=== PATIENT | female | born 1995 | race Caucasian/White ===

== ENCOUNTER 2016-08-28 21:52 | Emergency (ER) ==
[2016-08-29] MEDS ORDERED: NS 1,000 ML IV ONE (00:04)
[2016-08-29] MEDS ORDERED: ZOFRAN IV ONE (00:04)
[2016-08-29] MEDS ORDERED: DILAUDID IV ONE (00:04)
[2016-08-29 00:24] LABS: URINE SOURCE CLEAN CATCH
[2016-08-29 00:58] LABS: BASO% 0.4 % (0.0-0.8); EOS# 0.49 X1000 (0.0-0.7); HEMATOCRIT 34.2 % (37.0-47.0); HEMOGLOBIN 10.2 g/dL (12.0-16.0); IMM GRAN# 0.02 X1000 (0.0-0.04); IMM GRAN% 0.2 % (0.0-0.5); LYMPH# 4.45 X1000 (1.2-3.4); LYMPH% 36.1 % (20.5-51.1); MCH 20.2 PG (27-31); MCHC 29.8 g/dL (33-37); MCV 67.6 FL (81-99); MONO% 5.7 % (1.7-9.3); MPV 11.2 FL (7.4-10.4); NEUT% 53.6 % (42.2-75.2); PLT 309 X1000 (130-400); RBC 5.06 XMIL (4.2-5.4)
[2016-08-29 01:00] LABS: MANUAL DIFF NEEDED? NO
[2016-08-29 01:03] LABS: BILIRUBIN URINE NEGATIVE (NEGATIVE); BLOOD URINE NEGATIVE (NEGATIVE); CLARITY CLEAR (CLEAR); COLOR YELLOW; GLUCOSE URINE NEGATIVE (NEGATIVE); LEUKOCYTES URINE TRACE (NEGATIVE); NITRITE URINE NEGATIVE (NEGATIVE); PH URINE 6.5; PROTEIN URINE TRACE mg/dL (NEGATIVE); UROBILINOGEN URINE NORMAL
[2016-08-29 01:04] LABS: URINE CULTURE PL NEEDED? YES; URINE EPITHELIAL CELLS <10 /HPF (<10); URINE RBC <10 /HPF (<10); URINE WBC <10 /HPF (<10)
[2016-08-29 01:18] LABS: AGAP 13; ALBUMIN 4.6 g/dL (3.5-5.0); ALKALINE PHOSPHATASE 113 U/L (32-104); AMYLASE 40 U/L (20-200); BUN 12 mg/dL (8-22); CALCIUM 9.8 mg/dL (8.8-10.2); CHLORIDE 103 mmol/L (98-107); COSMO 277; GOT 21 U/L (10-30); GPT 23 U/L (10-36); LIPASE 34 U/L (13-60); POTASSIUM 3.8 mmol/L (3.5-5.1); SODIUM 139 mmol/L (136-145); TCO2 23 mmol/L (25-35); TOTAL PROTEIN 7.8 g/dL (6.3-8.3)
--- NOTE | 2016-08-29 01:52 | PROVIDER DOCUMENTATION ---
HPI-Abdominal Pain/GI Problem - General Chief Complaint: Abdominal Pain Stated Complaint: SORE THROAT Time Seen by Provider: 08/28/16 22:57 Source: patient Allergies/Adverse Reactions: Patient Allergies Allergy/AdvReac Type Severity Reaction Status Date / Time No Known Allergies Allergy Verified 08/28/16 23:33 Home Medications: Home Medication List Medication Instructions Recorded Confirmed Last Taken Type No Home Medications 08/28/16 08/28/16 Unknown History - History of Present Illness-ABD Nature of Presenting Problems: 21 year old obese WF presents with m/c. pt reports she awoke this morning with sore throat, RUQ, RLQ abd pain with fever to 101 at home. denies associated NVD. pt reports she has been eating and drinking well. pain is dull, constant, exacerbated with palpation, movement, alleviated by nothing. Abdominal Pain Onset Location: reports: RUQ, RLQ Pain Radiation: reports: no radiation Quality of Pain: reports: aching, dull Severity in ED: reports: mild Onset/Duration: reports: this morning Timing: reports: still present, constant, getting worse Activities at Onset: reports: none Modifying Factors: improves with: nothing Associated Symptoms: reports: fever/chills Last BM: this morning Dark Stools Present?: reports: none noticed. denies: maroon, black, tarry Rectal Bleeding: reports: none. denies: bleeding without stool, bright red blood on paper, blood mixed with stool, blood streaks on stool, bloody diarrhea # of Diarrhea Episodes: 0 Rectal Pain: reports: none # of Vomiting Episodes: 0 Emesis Description: reports: none Review of Systems - Adult - REVIEW OF SYSTEMS - ADULT Constitutional: reports: see HPI, chills, fever. denies: fatique Eyes: reports: no symptoms reported. denies: discharge, blurred vision, double vision Ears, Nose, Mouth & Throat: reports: see HPI, throat pain, throat swelling. denies: ear discharge, ear pain, nose pain, loose teeth Cardiovascular: reports: no symptoms reported. denies: chest pain, palpitations , syncope Respiratory: reports: no symptoms reported. denies: chronic cough, cough, shortness of breath, wheezing Gastrointestinal: reports: see HPI, abdominal pain. denies: hematemesis, constipation, diarrhea, difficulty swallowing, frequent heartburn, nausea, poor appetite, rectal bleeding, vomiting Genitourinary: reports: no symptoms reported. denies: dysuria, hematuria, urgency Musculoskeletal: reports: no symptoms reported. denies: bone pain, joint pain, joint swelling, neck pain Integumentary: reports: no symptoms reported. denies: hives, itching, skin thickening Neurological: reports: no symptoms reported. denies: ataxia, numbness, paresthesia, tremors Psychiatric: reports: no symptoms reported Endocrine: reports: no symptoms reported Hematologic/Lymphatic: reports: no symptoms reported Allergic/Immunologic: reports: no symptoms reported All Other Systems: Reviewed and Negative Past History - Adult - PAST MEDICAL HISTORY-ADULT Review of Records: reports: Old Records Reviewed, Nursing Assessment Review, Medications Reviewed, Social history reviewed & non-contributory. Major Childhood Illnesses: reports: denies history Cardiovascular: reports: HTN Respiratory: reports: asthma Gastrointestinal: reports: denies history Obstetrical/Gynecological: reports: denies history Genitourinary: reports: other (FREQUENT MENSTRUATION PAIN AND PROBLEMS) Musculoskeletal: reports: denies history Neurological: reports: denies history Psychiatric: reports: bipolar Endocrine/Immune: reports: denies history Other Conditions: reports: other (ATTENTION SEEKING BEHAVIOR) - PRIOR SURGERIES/PROCEDURES Surgical/Procedure History: reports: - PRIOR HOSPITALIZATIONS Prior Hospitalizations: reports: for other non-related (recently for iron deficiency anemia) - IMMUNIZATION STATUS Childhood Immunizations: See Nurse Assessment Flu Vaccine: See Nurse Assessment - FAMILY HISTORY Family History: reviewed, not pertinent - SOCIAL HISTORY Smoking: cigarettes Provider spent 3-5 mins advising pt. on dangers of tobacco.: Discussed manners to quit use, and f/u contacts for add'l counseling. Substance Use: none/never Alcohol Use Frequency: never Physical Exam-General - PHYSICAL EXAM-ADULT Initial Vital Signs Reviewed: Yes - CONSTITUTIONAL General Appearance: appears well, alert, no apparent distress. negative: mild distress, moderate distress, severe distress - EYES Eyes: pink conjunctivae. negative: conjuctival exudate, pale conjunctivae, photophobia, scleral icterus, subconjunctival hemorrhage - HEAD, EARS, NOSE, MOUTH & THROAT HENMT: normocephalic/atraumatic, moist mucous membranes, normal ENT inspection - NECK Neck: non-tender, full range of motion, supple, normal inspection - RESPIRATORY Respiratory: chest non-tender, lungs clear, normal breath sounds, no pleuratic chest pain, no respiratory distress, no accessory muscle use - CARDIOVASCULAR Cardiovascular: normal peripheral pulses, regular rate, rhythm - CHEST (BREASTS) Chest/Breast: deferred - GASTROINTESTINAL (ABDOMEN) Abdominal Exam: normal bowel sounds, soft, no organomegaly, no pulsatile mass, tenderness (RUQ, RLQ). negative: non tender, abnormal bowel sounds, distended, guarding, rigid, rebound, hernia, mass, hepatomegaly, spleenomegaly, McBurney's point tenderness, You's sign, obturator sign, prominent aortic pulsations, psoas, Rovsing's sign - GENITOURINARY Female Genitalia/Pelvic Exam: deferred Rectal Exam: deferred Hemoccult Exam: deferred - LYMPHATIC Lymphatic: no adenopathy - MUSCULOSKELETAL Back Exam: normal inspection, no CVA tenderness, no vertebral tenderness. negative: CVA tenderness, decreased range of motion, swelling, vertebral tenderness Extremity: normal range of motion, non-tender, normal gait, normal inspection, no pedal edema, no calf tenderness, normal capillary refill. negative: deformity, erythema, slow capillary refill, swelling Peripheral Pulses: radial (R): 3+, radial (L): 3+, dorsalis-pedis (R): 3+, dorsalis-pedis (L): 3+ - SKIN Integumentary: normal color, normal turgor, warm/dry - NEUROLOGIC Neurologic: grossly normal, no motor/sensory deficits - PSYCHIATRIC Psych/Mental Status: normal mood/affect, normal thought content, normal thought process, oriented x 3 Progress - PLAN OF CARE/RESULTS Progress/Plan/Lab Results: Laboratory Tests 08/28/16 08/29/16 08/29/16 22:00 00:15 00:15 WBC 12.31 H RBC 5.06 Hgb 10.2 L Hct 34.2 L MCV 67.6 L MCH 20.2 L MCHC 29.8 L RDW Std Deviation 17.4 H Plt Count 309 MPV 11.2 H Immature Gran % (Auto) 0.2 Neut % (Auto) 53.6 Lymph % (Auto) 36.1 [place] % (Auto) 5.7 Eos % (Auto) 4.0 Baso % (Auto) 0.4 Immature Gran # (Auto) 0.02 Neut # (Auto) 6.60 H Lymph # (Auto) 4.45 H Waller # (Auto) 0.70 H Eos # (Auto) 0.49 Baso # (Auto) 0.05 Sodium 139 Potassium 3.8 Chloride 103 Carbon Dioxide 23 L Anion Gap 13 BUN 12 Creatinine 0.7 Estimated GFR/1.73 m2 > 60 BUN/Creatinine Ratio 17 Glucose 96 Calculated Osmolality 277 Calcium 9.8 Total Bilirubin 0.20 AST 21 ALT 23 Alkaline Phosphatase 113 H Total Protein 7.8 Albumin 4.6 Globulin 3.0 Albumin/Globulin Ratio 1.0 Amylase 40 Lipase 34 Urine Source Urine Color Urine Clarity Urine pH Ur Specific [place] Urine Protein Urine Ketones Urine Blood Urine Nitrite Urine Bilirubin Urine Urobilinogen Urine Microscopic RBC Urine WBC Urine Microscopic WBC Ur Epithelial Cells Urine Bacteria Urine Glucose Urine Test Group A Strep Rapid NEGATIVE 08/29/16 08/29/16 00:17 00:17 WBC RBC Hgb Hct MCV MCH MCHC RDW Std Deviation Plt Count MPV Immature Gran % (Auto) Neut % (Auto) Lymph % (Auto) [place] % (Auto) Eos % (Auto) Baso % (Auto) Immature Gran # (Auto) Neut # (Auto) Lymph # (Auto) [place] # (Auto) Eos # (Auto) Baso # (Auto) Sodium Potassium Chloride Carbon Dioxide Anion Gap BUN Creatinine Estimated GFR/1.73 m2 BUN/Creatinine Ratio Glucose Calculated Osmolality Calcium Total Bilirubin AST ALT Alkaline Phosphatase Total Protein Albumin Globulin Albumin/Globulin Ratio Amylase Lipase Urine Source CLEAN CATCH Urine Color YELLOW Urine Clarity CLEAR Urine pH 6.5 Ur Specific [place] 1.010 Urine Protein TRACE A Urine Ketones NEGATIVE Urine Blood NEGATIVE Urine Nitrite NEGATIVE Urine Bilirubin NEGATIVE Urine Urobilinogen NORMAL Urine Microscopic RBC <10 Urine WBC TRACE A Urine Microscopic WBC <10 Ur Epithelial Cells <10 Urine Bacteria 1+ Urine Glucose NEGATIVE Urine Test NEGATIVE Group A Strep Rapid Orders Category Date Time Status Saline Loc DIRECTED Care 08/29/16 00:03 Active NPO Diet 08/29/16 00:[address] ABD/PELVIS W/ IV CONT ONLY [CT] Stat Exams 08/29/16 01:46 Ordered FLAT/UPRIGHT ABD/1 VIEW CHEST [RAD] Stat Exams 08/29/16 00:06 Taken AMYLASE [CHEM] Stat Lab 08/29/16 00:15 Completed CBC WITH ELECTRONIC DIFF [HEME] Stat Lab 08/29/16 00:15 Completed COMPREHENSIVE METABOLIC PANEL [CHEM] Stat Lab 08/29/16 00:[address] Stat Lab 08/28/16 22:00 Completed LIPASE [CHEM] Stat Lab 08/29/16 00:15 Completed TEST-URINE [PREG] Stat Lab 08/29/16 00:[address] W/POSS RFLX CULT [URINALYSIS] Stat Lab 08/29/16 00:17 Completed URINE CULTURE [RM] Routine Lab 08/29/16 01:04 Ordered 0.9% Sodium Chloride Inj [Ns] 1,000 ml Med 08/29/16 00:04 Discontinued IV 999 mls/hr Hydromorphone [Dilaudid] Med 08/29/16 00:04 Discontinued 0.5 mg IV NOW ONE Ondansetron [Zofran] Med 08/29/16 00:04 Discontinued 4 mg IV NOW ONE Vital Signs - 24 hr 08/28/16 21:56 Temperature 98.6 F Pulse Rate 86 Respiratory 18 Rate Blood Pressure 144/76 O2 Sat by Pulse 100 Oximetry Departure - Departure Time of Disposition Order: 02:42 DIAGNOSIS: Abdominal pain Qualifiers: Abdominal location: right lower quadrant Qualified Code(s): R10.31 - Right lower quadrant pain Disposition: [place] [address] Certified Medical Emergency: Emergent Condition: Stable Referrals: None,PCP [Primary Care Provider] - Attestation - Physician/ LISA Attestation Patient care was provided by Advanced Practice Provider:: Yes Advanced Practice Provider:: Graham Márquez Advanced Practice Provider documentation review:: The Mid-level provider documentation, treatment plan and medical decision making was reviewed by the physician who agrees with all treatment and medical decision making by the MLP.
[2016-08-29 01:59] VITALS: BP 121/80
--- NOTE | 2016-08-29 08:42 | Diag Imaging Result Document ---
PROCEDURE NAME: FLAT/UPRIGHT ABD/1 VIEW CHEST - 08/29/2016 FRONTAL CHEST X-RAY AND 2 VIEWS OF THE ABDOMEN: COMPARISON: 07/24/2016. FINDINGS: The chest is clear. There is a nonobstructive bowel gas pattern. No free air or abnormal calcifications. IMPRESSION: No acute disease.
== END 2016-08-29 02:42 | disposition left against medical advice (07) ==
LOC: P.ED 21:52
DX: R10.31 Right lower quadrant pain (principal); R10.11 Right upper quadrant pain; R50.9 Fever, unspecified; R07.0 Pain in throat; R22.1 Localized swelling, mass and lump, neck; I10 Essential (primary) hypertension; F17.210 Nicotine dependence, cigarettes, uncomplicated; Z71.6 Tobacco abuse counseling
CPT/HCPCS: 74022; 80053; 81001; 81025; 82150; 83690; 85025; 87081; 87088; 87430; J1170; J2405; J7030

== ENCOUNTER 2016-08-30 13:33 | Emergency (ER) ==
--- NOTE | 2016-08-30 14:19 | PROVIDER DOCUMENTATION ---
HPI-General Adult - General Source: patient <Kerry Mcintosh - Last Filed: 08/30/16 14:19> - General Source: patient, family - History of Present Illness -Gen Adult Nature of Presenting Problems: Presents to er with cc of cough,congestion,nausea and diarrhea x 2 days with productive cough clear with blood tinged and fever of 102.6. Negative Flu shot this year. Quality of Pain: reports: none Severity: reports: moderate Onset/Duration: reports: 2 days ago Timing: reports: still present Similar Symptoms Previously?: No Recently seen or treated by another doctor?: No <Dona Dasilva - Last Filed: 08/30/16 14:38> - General Chief Complaint: Cough Stated Complaint: COUGH/FEVER Time Seen by Provider: 08/30/16 13:54 Allergies/Adverse Reactions: Patient Allergies Allergy/AdvReac Type Severity Reaction Status Date / Time No Known Allergies Allergy Verified 08/30/16 13:53 Home Medications: Home Medication List Medication Instructions Recorded Confirmed Last Taken Type Ondansetron Odt [Zofran 8Mg Odt] 8 mg PO Q8H PRN PRN #20 tablet 08/30/16 Unknown Rx Oseltamivir [Tamiflu] 75 mg PO BID #10 capsule 08/30/16 Unknown Rx Promethazine [Phenergan] 25 mg PO Q6H PRN PRN #20 tablet 08/30/16 Unknown Rx Review of Systems - Adult - REVIEW OF SYSTEMS - ADULT Constitutional: reports: fever. denies: chills, fatique Eyes: reports: no symptoms reported Ears, Nose, Mouth & Throat: denies: ear pain, sinus problem, throat pain Cardiovascular: denies: chest pain, irregular heart rate, orthopnea Respiratory: reports: cough. denies: shortness of breath, wheezing Gastrointestinal: reports: diarrhea, nausea. denies: difficulty swallowing, frequent heartburn, vomiting Genitourinary: reports: no symptoms reported Musculoskeletal: reports: no symptoms reported Integumentary: reports: no symptoms reported Neurological: reports: no symptoms reported Psychiatric: reports: no symptoms reported Endocrine: reports: no symptoms reported Hematologic/Lymphatic: reports: no symptoms reported Allergic/Immunologic: reports: no symptoms reported All Other Systems: Reviewed and Negative <Dona Dasilva - Last Filed: 08/30/16 14:38> Past History - Adult - PAST MEDICAL HISTORY-ADULT Major Childhood Illnesses: reports: denies history Cardiovascular: reports: HTN Respiratory: reports: asthma Gastrointestinal: reports: denies history Obstetrical/Gynecological: reports: denies history Genitourinary: reports: other (FREQUENT MENSTRUATION PAIN AND PROBLEMS) Musculoskeletal: reports: denies history Neurological: reports: denies history Psychiatric: reports: bipolar Endocrine/Immune: reports: denies history Other Conditions: reports: other (ATTENTION SEEKING BEHAVIOR) - PRIOR SURGERIES/PROCEDURES Surgical/Procedure History: reports: - PRIOR HOSPITALIZATIONS Prior Hospitalizations: reports: for other non-related (recently for iron deficiency anemia) - IMMUNIZATION STATUS Childhood Immunizations: See Nurse Assessment Flu Vaccine: See Nurse Assessment - FAMILY HISTORY Family History: reviewed, not pertinent <Kerry Mcintosh - Last Filed: 08/30/16 14:19> - PAST MEDICAL HISTORY-ADULT Review of Records: reports: Nursing Assessment Review, Medications Reviewed Major Childhood Illnesses: reports: denies history Cardiovascular: reports: HTN Psychiatric: reports: ptsd - PRIOR SURGERIES/PROCEDURES Surgical/Procedure History: reports: - IMMUNIZATION STATUS Childhood Immunizations: See Nurse Assessment Flu Vaccine: See Nurse Assessment - SOCIAL HISTORY Smoking: cigarettes, less than 1 pack/day Provider spent 3-5 mins advising pt. on dangers of tobacco.: Discussed manners to quit use, and f/u contacts for add'l counseling. Substance Use: alcohol, marijuana <Dona Dasilva - Last Filed: 08/30/16 14:38> Physical Exam-General - PHYSICAL EXAM-ADULT Initial Vital Signs Reviewed: Yes - CONSTITUTIONAL General Appearance: appears well, alert, no apparent distress - EYES Eyes: PERRL/EOMI - HEAD, EARS, NOSE, MOUTH & THROAT HENMT: normocephalic/atraumatic, moist mucous membranes, TMs normal, pharyngeal erythema - NECK Neck: non-tender, full range of motion, supple, normal inspection - RESPIRATORY Respiratory: chest non-tender, lungs clear, normal breath sounds, no pleuratic chest pain, no respiratory distress, no accessory muscle use - CARDIOVASCULAR Cardiovascular: regular rate, rhythm, tachycardia - GASTROINTESTINAL (ABDOMEN) Abdominal Exam: normal bowel sounds, non tender, soft, no organomegaly, no pulsatile mass - MUSCULOSKELETAL Extremity: normal range of motion, non-tender, normal gait, normal inspection, no pedal edema, no calf tenderness, normal capillary refill, pelvis stable - SKIN Integumentary: normal color, normal turgor, warm/dry - PSYCHIATRIC Psych/Mental Status: normal mood/affect, normal thought content, normal thought process, oriented x 3 <Dona Dasilva - Last Filed: 08/30/16 14:38> Progress - PLAN OF CARE/RESULTS Progress/Plan/Lab Results: Orders Category Date Time Status CHEST-2 VIEWS [RAD] Stat Exams 08/30/16 13:59 Taken DIRECT STREP Stat Lab 08/30/16 13:43 Received INFLUENZA SCREEN A/B Stat Lab 08/30/16 13:43 Received Vital Signs Temp Pulse Resp BP Pulse Ox 08/30/16 13:41 100.2 F H 117 H 20 149/74 99 No Known Allergies Allergy (Verified 08/30/16 13:53) Ondansetron Odt [Zofran 8Mg Odt] 8 mg PO Q8H PRN PRN #20 tablet 08/30/16 Oseltamivir [Tamiflu] 75 mg PO BID #10 capsule 08/30/16 Promethazine [Phenergan] 25 mg PO Q6H PRN PRN #20 tablet 08/30/16 Discussed results and medication use with pt. - XRAY 1 XRAY Study: Chest Impression: See EMR Report (NAP, per Dr. Sanchez) <Kerry Mcintosh - Last Filed: 08/30/16 14:19> - PLAN OF CARE/RESULTS Progress/Plan/Lab Results: Orders Category Date Time Status CHEST-2 VIEWS [RAD] Stat Exams 08/30/16 13:59 Taken DIRECT STREP Stat Lab 08/30/16 13:43 Completed INFLUENZA SCREEN A/B Stat Lab 08/30/16 13:43 Completed Ondansetron Odt [Zofran Odt] Med 08/30/16 14:20 Discontinued 8 mg PO NOW ONE Vital Signs - 24 hr 08/30/16 08/30/16 13:41 14:31 Temperature 100.2 F H Pulse Rate 117 H 98 H Respiratory 20 18 Rate Blood Pressure 149/74 140/75 O2 Sat by Pulse 99 100 Oximetry FLU A positive FLU B negative Strep Negative <Dona Dasilva - Last Filed: 08/30/16 14:38> Departure - Departure Time of Disposition Order: 14:16 Certified Medical Emergency: Emergent <Kerry Mcintosh - Last Filed: 08/30/16 14:19> <Dona Dasilva - Last Filed: 08/30/16 14:38> - Departure DIAGNOSIS: Influenza A Disposition: HOME 01 Condition: Stable Additional Instructions: Drink plenty of fluids. Take medications as directed. Tylenol and motrin for fever. Follow up with PCP for recheck in 7 days. ED Follow Up Instructions: You have been treated by a care provider in the Emergency Department. These instructions are being provided to you so you can have an understanding of how to care for yourself upon discharge. Upon discharge from the Emergency Department, you are responsible for making arrangements for follow-up care by a physician of your choice. Take all prescribed medications as directed. Return to the Emergency Department immediately for any new or worsening symptoms. You may call the Physician Referral phone number at [phone] to obtain a list of Physicians who are taking new patients. Prescriptions: Promethazine [Phenergan] 25 mg PO Q6H PRN PRN #20 tablet PRN Reason: Nausea Oseltamivir [Tamiflu] 75 mg PO BID #10 capsule Ondansetron Odt [Zofran 8Mg Odt] 8 mg PO Q8H PRN PRN #20 tablet PRN Reason: Nausea Referrals: None,PCP [Primary Care Provider] - Forms: Return to School/Parent Work Instructions: Influenza, Adult, [id number] Attestation - Physician/ LISA Attestation Patient care was provided by Advanced Practice Provider:: Yes Advanced Practice Provider:: Kerry Mcintosh Advanced Practice Provider documentation review:: The Mid-level provider documentation, treatment plan and medical decision making was reviewed by the physician who agrees with all treatment and medical decision making by the [facility]. <Kerry Mcintosh - Last Filed: 08/30/16 14:19> - Scribe Verification/Attestation Scribe:: Dona Dasilva Acting as Scribe for:: Kerry Mcintosh Scribe documention review:: This chart was documented by a scribe and accurately reflects the service the provider performed and the decisions made by the provider. <Dona Dasilva - Last Filed: 08/30/16 14:38> Physician Attestation
[2016-08-30] MEDS ORDERED: ZOFRAN ODT PO ONE (14:20)
[2016-08-30 14:32] VITALS: BP 140/75
--- NOTE | 2016-08-30 15:00 | Diag Imaging Result Document ---
PROCEDURE NAME: CHEST-2 VIEWS - 08/30/2016 PA AND LATERAL RADIOGRAPH OF THE CHEST: COMPARISON: 08/29/2016. FINDINGS: The lungs are grossly clear. There is no discrete pleural fluid collection or evidence of pneumothorax. The cardiomediastinal silhouette and upper airway are grossly unremarkable. IMPRESSION: No evidence of acute chest pathology.
== END 2016-08-30 14:43 | disposition home or self-care (01) ==
LOC: ED 13:33
DX: J11.1 Influenza due to unidentified influenza virus with other respiratory manifestations (principal); R50.9 Fever, unspecified; R19.7 Diarrhea, unspecified; R11.0 Nausea; R05 Cough; I10 Essential (primary) hypertension; F17.210 Nicotine dependence, cigarettes, uncomplicated; Z71.6 Tobacco abuse counseling
CPT/HCPCS: 71020; 87081; 87430; 87804